=== PATIENT | male | born 1975 | race American Indian/Alaskan Native ===

== ENCOUNTER 2017-07-06 05:51 | Emergency (ER) | payer SELFPAY ==
[2017-07-06 06:36] VITALS: BP 135/95
--- NOTE | 2017-07-06 07:52 | XRay Report ---
RIGHT HAND, 2 views: History: Pain after fall. The bony architecture is intact. Bony alignment is normal. No soft tissue abnormalities are seen. The joint spaces appear preserved. IMPRESSION: Normal right hand.
--- NOTE | 2017-07-06 08:07 | XRay Report ---
RIGHT WRIST, 2 VIEWS: History: wrist pain, injury. Routine views demonstrate the carpal bones to be well mineralized with well preserved bony mineralization and interosseous joint spaces. The carpal and adjacent articular bones have normal contours. The surrounding soft tissues are unremarkable. IMPRESSION: Unremarkable right wrist.
[2017-07-06] MEDS ORDERED: FLEXERIL PO ONE (08:16)
[2017-07-06] MEDS ORDERED: MOTRIN PO ONE (08:16)
--- NOTE | 2017-07-06 08:30 | Emergency Department Report ---
HPI - General Chief Complaint: Extremity Injury, Upper Time Seen by Provider: 07/06/17 07:52 - HPI HPI: Patient is a 41-year-old male with no prior medical conditions who presents to ED complaining of right hand pain status post fell around 8 PM last night. Patient states he was climbing up the stairs when he tripped and hit his head on the step. Patient describes right hand pain is throbbing, aching in nature. 8/10 intensity. He denies any loss of sensation or loss of function of the hand. He denies any bleeding, ED Past Medical Hx - Past Medical History Previous Medical History?: Yes Hx Hypertension: Yes Hx HIV: Yes - Surgical History Past Surgical History?: Yes Hx Appendectomy: Yes Additional Surgical History: Hernia repair-2011 - Social History Smoking Status: Current Every Day Smoker Substance Use Type: Alcohol, Marijuana - Medications Home Medications: Home Medications Medication Instructions Recorded Confirmed Last Taken Type HYDROcodone/APAP 7.5-325 [[place] 1 each PO Q6HR PRN #15 tablet 01/14/14 Unknown Rx 7.5/325 mg] Lisinopril [Zestril] 20 mg PO QDAY 01/14/14 01/14/14 01/13/14 09:00 History Azithromycin [Zithromax Z-VICKY] 250 mg PO DAILY #6 tablet 01/29/14 Unknown Rx Benzonatate [Tessalon Perles] 100 mg PO Q8HR #15 capsule 01/29/14 Unknown Rx Cyclobenzaprine [Flexeril 10 MG 10 mg PO QHS #24 tablet 07/06/17 Unknown Rx TAB] Ibuprofen [Motrin 800 MG tab] 800 mg PO TID #30 tablet 07/06/17 Unknown Rx ED Review of Systems ROS: Stated complaint: RT WRIST PAIN S/P FALL Other details as noted in HPI Constitutional: denies: chills, fever Eyes: denies: eye pain, eye discharge, vision change ENT: denies: ear pain, throat pain Respiratory: denies: cough, shortness of breath, wheezing Cardiovascular: denies: chest pain, palpitations Endocrine: no symptoms reported Gastrointestinal: denies: abdominal pain, nausea, diarrhea Genitourinary: denies: urgency, dysuria Musculoskeletal: arthralgia, myalgia. denies: back pain, joint swelling Skin: denies: rash, lesions Neurological: denies: headache, weakness, paresthesias Psychiatric: denies: anxiety, depression Hematological/Lymphatic: denies: easy bleeding, easy bruising Physical Exam - Physical Exam Vital Signs: Vital Signs 07/06/17 06:31 Temperature 98.6 F Pulse Rate 70 Respiratory 18 Rate Blood Pressure 135/95 O2 Sat by Pulse 98 Oximetry Physical Exam: GENERAL: Alert and oriented x3, no apparent distress, Normal Gait, atraumatic. HEAD: Head is normocephalic and a-traumatic. NECK: Supple. Non edematous, No carotid bruits. No lymphadenopathy or thyromegaly. No C-spine tenderness LUNGS: Symetrical with respiration, No wheezing, no rales or crackles, CTAB. HEART: S1, S2 present, regular rate and rhythm without murmur, no rubs, no gallops. Non tender to palpation EXTREMITIES/MUSCULOSKELETAL: No cyanosis, clubbing, rash, lesions or edema. Full ROM bilaterally. UE/LE Pulses 2+ bilaterally. LE and UE 5+ strength bilaterally, wrist and hand joints are intact bilaterally. hand tenderness to palpation. Patient able to make this, extend and with minimal pain, no swelling , no ecchymosis, no bleeding NEUROLOGIC: The patient is cooperative with no focal neurologic deficits. Cranial nerves II through XII are grossly intact. Normal speech. Normal sensation in bilateral upper and lower extremities, No loss of sensation, PSYCHIATRIC: Mood is congruent with affect, denies suicidal or homicidal ideations. SKIN: Warm and dry, No lesions, No ulceration or induration present. ED Course Vital Signs 07/06/17 06:31 Temperature 98.6 F Pulse Rate 70 Respiratory 18 Rate Blood Pressure 135/95 O2 Sat by Pulse 98 Oximetry ED Medical Decision Making - Radiology Data Radiology results: report reviewed, image reviewed cc: TYSON DILLON MD Fluoro Time In Minutes: RIGHT WRIST, 2 VIEWS: History: wrist pain, injury. Routine views demonstrate the carpal bones to be well mineralized with well preserved bony mineralization and interosseous joint spaces. The carpal and adjacent articular bones have normal contours. The surrounding soft tissues are unremarkable. IMPRESSION: Unremarkable right wrist. Transcribed By: TTR Dictated By: TETO KOEHLER JR, MD Electronically Authenticated By: TETO KOEHLER JR, MD Signed Date/Time: 07/06/17805 - Medical Decision Making 41-year-old male presents with right hand arthralgia status post injury ED course: Hand and wrist x-ray obtained in the ED. X-rays all normal, discussed this finding is the patient. Patient received Motrin and Flexeril in ED. Vital signs are normal patient is in no acute distress Discussed with patient follow-up with primary care physician. Discussed the patient and take medications as prescribed. Patient has no neurological deficit. Patient is alert and oriented 3 and understands all instructions given. Discussed drowsiness effect of Flexeril makes her drowsy and not to operate machinery while taking flexeril Critical care attestation.: If time is entered above; I have spent that time in minutes in the direct care of this critically ill patient, excluding procedure time. ED Disposition Clinical Impression: Arthralgia of right hand Disposition: DC-01 TO HOME OR SELFCARE Is pt being admited?: No Does the pt Need Aspirin: No Condition: Stable Instructions: Trigger Point Pain (ED), Arthralgia (ED), Wrist Injury (ED), Heat Pack Application (ED) Prescriptions: Cyclobenzaprine [Flexeril 10 MG TAB] 10 mg PO QHS #24 tablet Ibuprofen [Motrin 800 MG tab] 800 mg PO TID #30 tablet Referrals: PRIMARY CARE, [Primary Care Provider] - 3-5 Days Forms: Accompanied Note, Work/School Release Form(ED) Time of Disposition: 08:34
== END 2017-07-06 08:41 | disposition home or self-care (01) ==
LOC: ED 05:51
DX: M79.641 Pain in right hand (principal); I10 Essential (primary) hypertension; F17.200 Nicotine dependence, unspecified, uncomplicated; F12.10 Cannabis abuse, uncomplicated
CPT/HCPCS: 99283

== ENCOUNTER 2018-05-24 08:44 | Emergency (ER) | payer SELFPAY ==
--- NOTE | 2018-05-24 09:13 | XRay Report ---
ROUTINE CHEST, TWO VIEWS: HISTORY: Chest pain, shortness of breath. The trachea, heart, mediastinal contour, lung moise and bony thorax are unremarkable. IMPRESSION: Unremarkable chest x-ray.
[2018-05-24 09:38] LABS: Mean Corpuscular HGB Conc 36 % (32-34); Mean Corpuscular Hemoglobin 32 pg (28-32); Mean Corpuscular Volume 90 fl (84-94); Platelet Count 279 K/mm3 (140-440); Red Blood Count 5.08 M/mm3 (3.65-5.03); Red Cell Distribution Width 14.4 % (13.2-15.2)
[2018-05-24 09:41] LABS: BUN/Creatinine Ratio 12; Blood Urea Nitrogen 12 mg/dL (9-20); Calcium 9.8 mg/dL (8.4-10.2); Hemolysis Index 24
[2018-05-24 09:46] LABS: Hematocrit 45.6 % (35.5-45.6); Hemoglobin 16.2 gm/dl (11.8-15.2)
[2018-05-24 10:07] LABS: INR 0.89 (0.87-1.13)
[2018-05-24 10:40] LABS: Total Cells Counted 100
[2018-05-24 10:41] LABS: Anisocytosis 1+; Platelet Estimate Consistent w Auto
[2018-05-24 14:52] VITALS: BP 143/100
--- NOTE | 2018-05-24 15:26 | Emergency Department Report ---
ED General Adult HPI - General Chief complaint: Chest Pain Stated complaint: CHEST PAIN Time Seen by Provider: 05/24/18 15:16 Source: patient Mode of arrival: Ambulatory Limitations: No Limitations - History of Present Illness Initial comments: Chief complaint: Chest pain 42-year-old man presents with left upper anterior chest discomfort over the past several days, with associated secondary shortness of breath, with some nausea, and feels like he is got tingling in his left hand and fingers. Onset was spontaneous, not associated with exertion, but symptoms are exacerbated with deep inspiration, and some movements as well. They're more or less constant, moderate in intensity, 3-4 out of 10 initially, and now 5-6 out of 10 , but similar in character, with no progression of symptoms. He's had no relief with rest. 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 He has no cough or wheezes, no sputum production, but he does smoke cigarettes on a daily basis. Past medical history is significant for hypertension, and he stopped taking his 40 mg of lisinopril because he was too busy to make doctor's appointment to get medication refills. He is also HIV positive, and had been treated at the infectious disease program at [facility], but got all of his medications for all medical conditions at the [facility], and stopped taking his HIV medicines at that time for the same reason. He has not had any other symptoms, and is otherwise in good general health. - Related Data Previous Rx's Medication Instructions Recorded Last Taken Type HYDROcodone/APAP 7.5-325 [[place] 1 each PO Q6HR PRN #15 tablet 01/14/14 Unknown Rx 7.5/325 mg] Azithromycin [Zithromax Z-VICKY] 250 mg PO DAILY #6 tablet 01/29/14 Unknown Rx Benzonatate [Tessalon Perles] 100 mg PO Q8HR #15 capsule 01/29/14 Unknown Rx Cyclobenzaprine [Flexeril 10 MG 10 mg PO QHS #24 tablet 07/06/17 Unknown Rx TAB] Ibuprofen [Motrin 800 MG tab] 800 mg PO TID #30 tablet 07/06/17 Unknown Rx Acetaminophen/Codeine [Tylenol 1 tab PO Q6H PRN #20 tab 05/24/18 Unknown Rx /Codeine # 3 tab] Cyclobenzaprine HCl 7.5 mg PO TID PRN #21 tab 05/24/18 Unknown Rx [Cyclobenzaprine 7.5 MG TAB] Ibuprofen 600 mg PO TID #21 tablet 05/24/18 Unknown Rx Lisinopril [Zestril TAB] 20 mg PO QDAY #30 tablet 05/24/18 Unknown Rx Allergies Allergy/AdvReac Type Severity Reaction Status Date / Time No Known Allergies Allergy Verified 05/24/18 08:49 ED Review of Systems ROS: Stated complaint: CHEST PAIN Other details as noted in HPI Comment: All other systems reviewed and negative Constitutional: no symptoms reported ENT: denies: throat pain Respiratory: denies: cough, orthopnea, shortness of breath, SOB with exertion, wheezing Cardiovascular: chest pain (left upper anterior chest, worse with movement). denies: dyspnea on exertion, orthopnea, edema, syncope, paroxysmal nocturnal dyspnea Endocrine: no symptoms reported Gastrointestinal: denies: abdominal pain, nausea, diarrhea Musculoskeletal: other (left arm and shoulder pain, with secondary tingling) Skin: denies: rash, lesions Neurological: numbness (left hand and fingers), paresthesias (left hand and fingers). denies: headache, weakness, confusion, vertigo Psychiatric: denies: anxiety, depression Hematological/Lymphatic: denies: easy bleeding, easy bruising ED Past Medical Hx - Past Medical History Hx Hypertension: Yes (noncompliant, previously took lisinopril) Hx HIV: Yes (noncompliant, does not know CD4 level) - Surgical History Hx Appendectomy: Yes Additional Surgical History: Hernia repair-2011 - Social History Smoking Status: Current Every Day Smoker Substance Use Type: None - Medications Home Medications: Home Medications Medication Instructions Recorded Confirmed Last Taken Type HYDROcodone/APAP 7.5-325 [[place] 1 each PO Q6HR PRN #15 tablet 01/14/14 Unknown Rx 7.5/325 mg] Azithromycin [Zithromax Z-VICKY] 250 mg PO DAILY #6 tablet 01/29/14 Unknown Rx Benzonatate [Tessalon Perles] 100 mg PO Q8HR #15 capsule 01/29/14 Unknown Rx Cyclobenzaprine [Flexeril 10 MG 10 mg PO QHS #24 tablet 07/06/17 Unknown Rx TAB] Ibuprofen [Motrin 800 MG tab] 800 mg PO TID #30 tablet 07/06/17 Unknown Rx Acetaminophen/Codeine [Tylenol 1 tab PO Q6H PRN #20 tab 05/24/18 Unknown Rx /Codeine # 3 tab] Cyclobenzaprine HCl 7.5 mg PO TID PRN #21 tab 05/24/18 Unknown Rx [Cyclobenzaprine 7.5 MG TAB] Ibuprofen 600 mg PO TID #21 tablet 05/24/18 Unknown Rx Lisinopril [Zestril TAB] 20 mg PO QDAY #30 tablet 05/24/18 Unknown Rx ED Physical Exam - General Limitations: No Limitations General appearance: alert, in no apparent distress - Head Head exam: Present: atraumatic, normocephalic - Eye Eye exam: Present: PERRL - ENT ENT exam: Present: normal exam, mucous membranes moist - Neck Neck exam: Present: normal inspection, full ROM. Absent: tenderness - Respiratory Respiratory exam: Present: normal lung sounds bilaterally, chest wall tenderness (left anterior upper chest wall, reproducible of patient's discomfort ). Absent: respiratory distress, wheezes, rales - Cardiovascular Cardiovascular Exam: Present: regular rate, normal rhythm - GI/Abdominal GI/Abdominal exam: Present: soft, normal bowel sounds. Absent: distended, tenderness, guarding, rebound - Rectal Rectal exam: Present: deferred - Extremities Exam Extremities exam: Present: normal inspection, full ROM, other (normal strength both upper extremities, normal objective sensation). Absent: pedal edema - Back Exam Back exam: Present: normal inspection, full ROM. Absent: tenderness, muscle spasm - Neurological Exam Neurological exam: Present: alert, oriented X3, CN II-XII intact, reflexes normal, other (normal strength all extremities, no focal weakness, normal objective sensation). Absent: motor sensory deficit - Psychiatric Psychiatric exam: Present: normal affect, normal mood - Skin Skin exam: Present: warm, dry ED Course Vital Signs 05/24/18 05/24/18 08:49 14:51 Temperature 36.9 C Pulse Rate 82 68 Respiratory 18 16 Rate Blood Pressure 147/102 Blood Pressure 143/100 [Right] O2 Sat by Pulse 99 100 Oximetry ED Medical Decision Making - Lab Data Result diagrams: 05/24/18 09:08 05/24/18 09:08 Troponin negative 2 - EKG Data EKG shows normal: sinus rhythm (72 bpm), axis (QRS axis 64), intervals (QT interval normal at 404 ms corrected), QRS complexes, ST-T waves - EKG Data When compared to previous EKG there are: previous EKG unavailable - Radiology Data Radiology results: report reviewed Normal chest x-ray - Medical Decision Making This previously healthy 42-year-old man has typical noncardiac chest wall discomfort, with a normal cardiac evaluation, negative troponins 2, negative EKG, normal chest x-ray. He has untreated hypertension, blood pressure was 147/ 102 at arrival, but he is asymptomatic, and laboratory evaluation is unremarkable with no signs of secondary end organ damage. He is also HIV positive, but untreated, but shows no signs of acute illness secondary to relative immune deficiency. Patient has negative cardiac workup, will need to restart both of his HIV medicines as well as his antihypertensive medications, but does not recall his HIV medicines, and this will have to wait until he can follow back at a local primary care physician, whom his has made arrangements an initial appointment to see. I can however resume his lisinopril, and he is pretty clear that he was taking the highest 40 mg dose, and I will start this again at his request. - Differential Diagnosis chest wall pain, acute coronary syndrome, pleuritic chest pain Critical Care Time: No Critical care attestation.: If time is entered above; I have spent that time in minutes in the direct care of this critically ill patient, excluding procedure time. ED Disposition Clinical Impression: Acute chest wall pain, HIV positive Hypertension Qualifiers: Hypertension type: unspecified Qualified Code(s): I10 - Essential (primary) hypertension Disposition: DC- TO HOME OR SELFCARE Is pt being admited?: No Does the pt Need Aspirin: No Condition: Stable Instructions: Chest Pain (ED), Hypertension (ED) Additional Instructions: We have provided a refill for lisinopril, 40 mg, to be taken once daily for blood pressure control. You need to follow with a primary care physician, or return to the [place] infectious disease program to resume your HIV medicines, and they can provide a refill for this. Laboratory evaluation, EKG, and chest x-ray were all normal, and there are no symptoms to be suggestive of heart attack or heart disease. Although your evaluation is negative today, it is often a good idea to have additional heart testing, although it is under stress, such as a heart stress test, or a nuclear cardiac scan, but this can be safely done in the doctor's office on an outpatient basis. Contact your primary care doctor to make arrangements to have this test performed within the next week or so, and you can review the results at your next visit with your doctor. He had a significant history of smoking daily, and this is the greatest risk to you for blood pressure as well as heart disease risk, and we recommend that she make every effort to stop, as you are the only one that can stop smoking and eliminate this helps risk. We're providing muscle relaxants, cyclobenzaprine, and analgesics, Tylenol with Codeine, free of chest wall discomfort. Nonmedication measures, such as heating pads, moderate heat only, 15-30 minutes at a time, 3-4 times per day, as well as gentle stretching exercises, without bouncing, can also help to relieve muscular discomfort. Regular movement activities or physical exercises that move all portions of your chest back and neck, will help to keep all of the muscles limber and imbalance. Have recheck with your doctor in one or 2 weeks to reassess her blood pressure control. Prescriptions: Acetaminophen/Codeine [Tylenol /Codeine # 3 tab] 1 tab PO Q6H PRN #20 tab PRN Reason: Pain, Moderate (4-6) Cyclobenzaprine HCl [Cyclobenzaprine 7.5 MG TAB] 7.5 mg PO TID PRN #21 tab PRN Reason: muscle tightness Ibuprofen 600 mg PO TID #21 tablet Lisinopril [Zestril TAB] 20 mg PO QDAY #30 tablet Referrals: PRIMARY CARE, [Primary Care Provider] - 3-5 Days Forms: Work/School Release Form(ED) Time of Disposition: 16:03
== END 2018-05-24 16:15 | disposition home or self-care (01) ==
LOC: ED 08:44
DX: R07.89 Other chest pain (principal); I10 Essential (primary) hypertension; F17.200 Nicotine dependence, unspecified, uncomplicated; Z21 Asymptomatic human immunodeficiency virus [HIV] infection status; Z90.89 Acquired absence of other organs
CPT/HCPCS: 36415; 71046; 80048; 83615; 84484; 85007; 85025; 85379; 85610; 93005; 93010; 99284

== ENCOUNTER 2019-01-02 11:47 | Emergency (ER) | payer OTHER ==
--- NOTE | 2019-01-02 12:11 | Emergency Department Report ---
Blank Doc - Documentation Documentation: This is a 43-year-old male that presents with lower back pain x2 months. Denies any urinary symptoms. Denies any injuries or trauma. This initial assessment diagnostic orders/clinical plan/treatment(s) is/are subject to change based on patient's health status, clinical progression and re- assessment by fellow clinical providers in the ED. Further treatment and workup at subsequent clinical providers discretion. Patient/guardians urged not to elope from ED s their condition may be serious if not clinically assessed and managed. Initial orders include: 1-Patient sent to [facility] for further evaluation and treatment
[2019-01-02 12:12] VITALS: BP 156/110
[2019-01-02] MEDS ORDERED: NORCO 10/325 PO ONE (16:25)
[2019-01-02] MEDS ORDERED: ZOFRAN ODT PO ONE (16:25)
--- NOTE | 2019-01-02 16:56 | Emergency Department Report ---
<POLO FARRIS - Last Filed: 01/02/19 16:54> ED General Adult HPI - General Chief complaint: Back Pain/Injury Stated complaint: BACK PAIN Time Seen by Provider: 01/02/19 12:10 Source: patient Mode of arrival: Ambulatory Limitations: No Limitations - History of Present Illness Initial comments: Patient presents to the ED with a chief complaint lower back pain for the last 2 months that has become worse over the last 2 days. Patient describes the pain is radiating down his legs bilaterally and describes the pain as an electrical shock. Patient denies any issues with his bladder or stool. Patient also denies paresthesias. -: Gradual Location: back Radiation: other (into both legs) Severity scale (0 -10): 10 Quality: sharp Consistency: constant Improves with: rest Worsens with: movement Associated Symptoms: denies other symptoms Treatments Prior to Arrival: none - Related Data Previous Rx's Medication Instructions Recorded Last Taken Type HYDROcodone/APAP 7.5-325 [[place] 1 each PO Q6HR PRN #15 tablet 01/14/14 Unknown Rx 7.5/325 mg] Azithromycin [Zithromax Z-VICKY] 250 mg PO DAILY #6 tablet 01/29/14 Unknown Rx Benzonatate [Tessalon Perles] 100 mg PO Q8HR #15 capsule 01/29/14 Unknown Rx Cyclobenzaprine [Flexeril 10 MG 10 mg PO QHS #24 tablet 07/06/17 Unknown Rx TAB] Ibuprofen [Motrin 800 MG tab] 800 mg PO TID #30 tablet 07/06/17 Unknown Rx Acetaminophen/Codeine [Tylenol 1 tab PO Q6H PRN #20 tab 05/24/18 Unknown Rx /Codeine # 3 tab] Cyclobenzaprine HCl 7.5 mg PO TID PRN #21 tab 05/24/18 Unknown Rx [Cyclobenzaprine 7.5 MG TAB] Ibuprofen 600 mg PO TID #21 tablet 05/24/18 Unknown Rx Lisinopril [Zestril TAB] 20 mg PO QDAY #30 tablet 05/24/18 Unknown Rx HYDROcodone/APAP 5-325 [[place] 1 each PO Q6HR PRN #12 tablet 01/02/19 Unknown Rx 5/325] Ibuprofen [Motrin] 800 mg PO Q8HR PRN #30 tablet 01/02/19 Unknown Rx predniSONE [Deltasone] 20 mg PO DAILY #15 tablet 01/02/19 Unknown Rx Allergies Allergy/AdvReac Type Severity Reaction Status Date / Time No Known Allergies Allergy Verified 05/24/18 08:49 ED Review of Systems Comment: All other systems reviewed and negative Constitutional: denies: chills, fever Eyes: denies: eye pain, eye discharge, vision change ENT: denies: ear pain, throat pain Respiratory: denies: cough, shortness of breath, wheezing Cardiovascular: denies: chest pain, palpitations Endocrine: no symptoms reported Gastrointestinal: denies: abdominal pain, nausea, diarrhea Genitourinary: denies: urgency, dysuria Musculoskeletal: back pain. denies: joint swelling, arthralgia Skin: denies: rash, lesions Neurological: denies: headache, weakness, paresthesias Psychiatric: denies: anxiety, depression Hematological/Lymphatic: denies: easy bleeding, easy bruising ED Past Medical Hx - Past Medical History Hx Hypertension: Yes (noncompliant, previously took lisinopril) Hx HIV: Yes (anti-viral) - Surgical History Hx Appendectomy: Yes Additional Surgical History: Hernia repair-2011 - Social History Smoking Status: Current Every Day Smoker Substance Use Type: None - Medications Home Medications: Home Medications Medication Instructions Recorded Confirmed Last Taken Type HYDROcodone/APAP 7.5-325 [[place] 1 each PO Q6HR PRN #15 tablet 01/14/14 Unknown Rx 7.5/325 mg] Azithromycin [Zithromax Z-VICKY] 250 mg PO DAILY #6 tablet 01/29/14 Unknown Rx Benzonatate [Tessalon Perles] 100 mg PO Q8HR #15 capsule 01/29/14 Unknown Rx Cyclobenzaprine [Flexeril 10 MG 10 mg PO QHS #24 tablet 07/06/17 Unknown Rx TAB] Ibuprofen [Motrin 800 MG tab] 800 mg PO TID #30 tablet 07/06/17 Unknown Rx Acetaminophen/Codeine [Tylenol 1 tab PO Q6H PRN #20 tab 05/24/18 Unknown Rx /Codeine # 3 tab] Cyclobenzaprine HCl 7.5 mg PO TID PRN #21 tab 05/24/18 Unknown Rx [Cyclobenzaprine 7.5 MG TAB] Ibuprofen 600 mg PO TID #21 tablet 05/24/18 Unknown Rx Lisinopril [Zestril TAB] 20 mg PO QDAY #30 tablet 05/24/18 Unknown Rx HYDROcodone/APAP 5-325 [[place] 1 each PO Q6HR PRN #12 tablet 01/02/19 Unknown Rx 5/325] Ibuprofen [Motrin] 800 mg PO Q8HR PRN #30 tablet 01/02/19 Unknown Rx predniSONE [Deltasone] 20 mg PO DAILY #15 tablet 01/02/19 Unknown Rx ED Physical Exam - General Limitations: No Limitations General appearance: alert, in no apparent distress - Head Head exam: Present: atraumatic, normocephalic - Eye Eye exam: Present: normal appearance, PERRL, EOMI - ENT ENT exam: Present: mucous membranes moist - Neck Neck exam: Present: normal inspection - Respiratory Respiratory exam: Present: normal lung sounds bilaterally. Absent: respiratory distress, wheezes, rales - Cardiovascular Cardiovascular Exam: Present: regular rate, normal rhythm. Absent: systolic murmur, diastolic murmur, rubs, gallop - GI/Abdominal GI/Abdominal exam: Present: soft, normal bowel sounds. Absent: distended, tenderness - Rectal Rectal exam: Present: deferred - Extremities Exam Extremities exam: Present: normal inspection - Back Exam Back exam: Present: normal inspection, other (bilateral positive straight leg raise; tenderness to palpation of the lumbar region) - Neurological Exam Neurological exam: Present: alert, oriented X3, CN II-XII intact, reflexes normal. Absent: normal gait, motor sensory deficit - Psychiatric Psychiatric exam: Present: normal affect, normal mood - Skin Skin exam: Present: warm, dry, intact, normal color. Absent: rash ED Disposition Clinical Impression: Lumbar radiculopathy, L4-L5 disc bulge Disposition: DC-01 TO HOME OR SELFCARE Condition: Stable Instructions: Degenerative Disc Disease (ED), Chronic Back Pain (ED), Lumbar Radiculopathy (ED) Additional Instructions: Make sure to follow up with the primary care physician as discussed. Take all your medications as you've been prescribed. If you have any worsening symptoms or develop new symptoms please return to ED i mmediately. Prescriptions: HYDROcodone/APAP 5-325 [[place] 5/325] 1 each PO Q6HR PRN #12 tablet PRN Reason: Pain Ibuprofen [Motrin] 800 mg PO Q8HR PRN #30 tablet PRN Reason: Pain predniSONE [Deltasone] 20 mg PO DAILY #15 tablet Referrals: KIMBERLEE JONES MD [Primary Care Provider] - 3-5 Days Forms: Work/School Release Form(ED) <ISHAN MEEKS - Last Filed: 01/02/19 18:09> ED Review of Systems ROS: Stated complaint: BACK PAIN Other details as noted in HPI ED Course Vital Signs 01/02/19 01/02/19 12:10 16:30 Temperature 97.9 F Pulse Rate 83 Respiratory 18 18 Rate Blood Pressure 156/110 O2 Sat by Pulse 100 Oximetry ED Medical Decision Making - Radiology Data Radiology results: report reviewed, image reviewed FINAL REPORT EXAM: CT LUMBAR SPINE WO CON HISTORY: lumbar radiculopathy TECHNIQUE: Helical images of the lumbar spine were obtained. Images are reconstructed in the sagittal and coronal planes. PRIORS: None. FINDINGS: The lumbar vertebral bodies are normal in height and alignment and lumbar lordosis is preserved. The paraspinous soft tissues are unremarkable. T11-12 through L3-L4: No disc bulge or protrusion. The facet joints appear well preserved. No spinal or foraminal stenosis. L4-L5: Medium-sized broad-based posterior disc bulge. The facet joints appear well preserved. No spinal or foraminal stenosis. L5-S1: No disc bulge or protrusion. Mild bilateral facet and ligamentum flavum hypertrophy. No spinal or foraminal stenosis. IMPRESSION: 1. Broad-based posterior disc bulge at L4-5. No evidence of spinal or foraminal stenosis. Considering history of radiculopathy, further evaluation with MRI is recommended which will give more precise anatomic detail of degenerative changes and their relationship to the spinal canal and spinal nerves. 2. Mild degenerative facet disease at L5-S1 Transcribed By: CARI Dictated By: RADHA MAHONEY MD Electronically Authenticated By: RADHA MAHONEY MD Signed Date/Time: 01/02/19 9936 Critical care attestation.: If time is entered above; I have spent that time in minutes in the direct care of this critically ill patient, excluding procedure time. ED Disposition Is pt being admited?: No Does the pt Need Aspirin: No Time of Disposition: 18:08
--- NOTE | 2019-01-02 17:56 | Cat Scan Report ---
FINAL REPORT EXAM: CT LUMBAR SPINE WO CON HISTORY: lumbar radiculopathy TECHNIQUE: Helical images of the lumbar spine were obtained. Images are reconstructed in the sagitt al and coronal planes. PRIORS: None. FINDINGS: The lumbar vertebral bodies are normal in height and alignment and lumbar lordosis is preserved. The paraspinous soft tissues are unremarkable. T11-12 through L3-L4: No disc bulge or protrusion. The facet joints appear well preserved. No spinal or foraminal stenosis. L4-L5: Medium-sized broad-based posterior disc bulge. The facet joints appear well preserved. No spin al or foraminal stenosis. L5-S1: No disc bulge or protrusion. Mild bilateral facet and ligamentum flavum hypertrophy. No spinal or foraminal stenosis. IMPRESSION: 1. Broad-based posterior disc bulge at L4-5. No evidence of spinal or foraminal stenosis. Considering history of radiculopathy, further evaluation with MRI is recommended which will give more precise an atomic detail of degenerative changes and their relationship to the spinal canal and spinal nerves. 2. Mild degenerative facet disease at L5-S1
== END 2019-01-02 18:24 | disposition home or self-care (01) ==
LOC: ED 11:47
DX: M54.16 Radiculopathy, lumbar region (principal); I10 Essential (primary) hypertension; F17.200 Nicotine dependence, unspecified, uncomplicated; Z21 Asymptomatic human immunodeficiency virus [HIV] infection status
CPT/HCPCS: 72131; 99283; Q0162